=== PATIENT | female | born 1995 | race Caucasian/White ===

== ENCOUNTER 2017-05-12 07:01 | Emergency (ER) | payer OTHER ==
[~2017-05-12] VITALS: Ht 157.5 cm; Wt 56.3 kg
[2017-05-12 07:07] VITALS: Ht 157.5 cm; Wt 56.3 kg
--- NOTE | 2017-05-12 07:26 | EMERGENCY ROOM VISIT NOTE ---
History Report prepared by Chidi: Harper Luna Under the Supervision of: Dr. Lauri Cobos M.D. First contact with patient: 07:11 Chief Complaint: FLU LIKE SX Stated Complaint: FEVER,COUGH,LETHARGY History of Present Illness The patient is a 21 year old female who presents to the Emergency Room with complaints of worsening generalized illness beginning on Wednesday, 4 days ago. The patient went to work three days ago and had to leave because she had a fever. The patient states she started to feel better two days ago. However, this morning, the patient states she started to become lethargic and weak. She notes a yellow productive cough, runny nose, diarrhea, headache, and nasal congestion. The patient states her cough worsens when she takes a deep breath. She denies any nausea or vomiting. The patient states she has been keeping up with her fluids. The patient states her last fever was two days ago. The patient has a history of hypoglycemia and a tonsillectomy. The patient denies any chance of . The patient is currently on her menstrual period and she reports it has been normal. The patient states her boss is sick with the flu. Source of History: patient Onset: 4 days ago Position: other (generalized) Quality: other (illness) Timing: worsening Associated Symptoms: + fevers, + headache, + cough, + diarrhea, No nausea, No vomiting Review of Systems See HPI for pertinent positives & negatives. A total of 10 systems reviewed and were otherwise negative. Past Medical & Surgical Medical Problems: (1) Hypoglycemia Surgical Problems: (1) Hx of tonsillectomy Old medical records were reviewed. Nurse's notes were reviewed and I agree with. Family History Patient reports no known family medical history. Social History Smoking Status: Never Smoker Drug Use: none Marital Status: in relationship Current/Historical Medications No Active Prescriptions or Reported Meds Allergies Uncoded Allergies: PENICILLIN (Allergy, Severe, anaphylaxis, seizures, 05/12/17) Physical Exam Vital Signs Date Time Temp Pulse Resp B/P (MAP) Pulse Ox O2 Delivery O2 Flow Rate FiO2 05/12/17 09:39 38.7 95 18 137/90 98 05/12/17 09:16 38.7 95 18 137/90 98 Room Air 05/12/17 07:07 37.5 108 18 130/83 97 Room Air Physical Exam General: Mildy-ill appearing young female in no acute distress.. Non-toxic appearing with an occasional dry cough, no respiratory distress. HEENT: Normal cephalic atraumatic. Pupils are equal round and reactive to light. Extraocular movements are intact. Oropharynx is pink with moist mucous membranes. Tonsils are surgically removed. No swelling of the mouth lips or tongue. Neck: Supple with a midline trachea. No meningeal signs or stiffness, no JVD or bruits. No Stridor. Chest: Clear to auscultation bilaterally. No wheezes or rhonchi. No increased work of breathing. Heart: regular rate and rhythm. Abdomen: Soft nontender, nondistended without rebound guarding or rigidity. Extremities: No cyanosis clubbing or edema. No calf tenderness or assymetry Spine/Back. Non tender to palpation. No CVA tenderness Skin: Good turgor without rashes. Neurologic exam: Cranial nerves two through 12 are intact. Motor and sensation are intact and symmetrical throughout. Medical Decision & Procedures ER Provider Diagnostic Interpretation: Radiology results as stated below per my review and radiologist interpretation: CHEST ONE VIEW PORTABLE FINDINGS: Lung volumes are normal. No pneumothorax or pleural effusion is noted. Cardiac size is normal. Mediastinal contours are normal. There is no consolidation. There is no evidence of pulmonary edema. IMPRESSION: No acute cardiopulmonary findings. Electronically signed by: Gabriel Faye M.D. Laboratory Results Test 05/12/17 07:28 Influenza Type A Antigen POS for Influ A (NEG) Influenza Type B Antigen Neg for Influ B (NEG) Laboratory studies as stated above per my review. Medications Administered Medications (Trade) Dose Ordered Sig/Satish Route Start Time Stop Time Status Last Admin Dose Admin Ibuprofen (Advil Tab) 400 mg NOW STAT PO 05/12/17 09:17 05/12/17 09:18 DC 05/12/17 09:24 400 MG ED Course 0713: Past medical records reviewed. The patient was evaluated in room B2, and a complete history and physical examination were performed. 0811: The patient is resting comfortably. 0839: I updated the patient on her test results. Discussed with the patient that she is outside the window of Tamiflu. She is resting comfortably. 0917: Ordered Ibuprofen 200 mg PO. 0925: Upon reevaluation, the patient is resting comfortably. I discussed the results and treatment plan with her. She verbalized agreement of the treatment plan. The patient was discharged home. Medical Decision Differential diagnoses: Bronchitis, pneumonia, influenza. This patient comes in as described above. She was placed in room B2. She has cough and URI type symptoms. Her boss had the flu. She is non-hypoxemic. she has a dry hacking cough. She has no meningeal signs or stiffness and appears nontoxic and non-lethargic. She has normal mentation. Chest x-ray was obtained as well as a flu swab. She was reassessed frequently. Chest x-ray was unremarkable. Influenza swab was positive. She is at least 4 days into this and would unlikely benefit from Tamiflu. I had a discussion with her about this she agrees. She should be getting better in the next day or so. She can use ibuprofen for pain she should rest and drink plenty of fluids and follow-up with her doctor in the next couple days if not better or return to ER symptoms worsen. She is happy with plan and discharged to home. Medication Reconcilliation Current Medication List: was personally reviewed by me Blood Pressure Screening Patient's blood pressure: Elevated blood pressure Blood pressure disposition: Elevated BP felt to be situational Impression Primary Impression: Influenza A Scribe Attestation The scribe's documentation has been prepared under my direction and personally reviewed by me in its entirety. I confirm that the note above accurately reflects all work, treatment, procedures, and medical decision making performed by me. Departure Information Dispostion Home / Self-Care Prescriptions No Active Prescriptions or Reported Meds Referrals No Doctor, Assigned (PCP) Forms HOME CARE DOCUMENTATION FORM, IMPORTANT VISIT INFORMATION Patient Instructions My [facility] Additional Instructions Rest. Drink plenty of fluids. May use ibuprofen 400 mg every 6 hours if needed for fever or aches Return if: Worsening of symptoms, shortness of breath, not tolerating fluids, any new problems or concerns Follow-up with your doctor in 1-2 days for recheck.
--- NOTE | 2017-05-12 07:46 | DIAGNOSTIC IMAGING REPORT ---
CHEST ONE VIEW PORTABLE CLINICAL HISTORY: Fever. Chest pain. COMPARISON STUDY: No previous studies for comparison. FINDINGS: Lung volumes are normal. No pneumothorax or pleural effusion is noted. Cardiac size is normal. Mediastinal contours are normal. There is no consolidation. There is no evidence of pulmonary edema. IMPRESSION: No acute cardiopulmonary findings. Electronically signed by: Gabriel Faye M.D. 05/12/2017 7:45 AM Dictated Date/Time: 05/12/2017 7:44 AM
[2017-05-12 08:21] LABS: INFLUENZA B ANTIGEN Neg for Influ B (NEG)
[2017-05-12] MEDS ORDERED: IBUPROFEN 200 MG TAB PO STA (09:17)
[2017-05-12 09:39] VITALS: BP 137/90; PULSE 95; TEMP 38.7; O2SAT 98
== END 2017-05-12 09:42 | disposition home or self-care (01) ==
LOC: C.EDB 07:03
DX: J11.1 Influenza due to unidentified influenza virus with other respiratory manifestations (principal)